=== PATIENT | female | born 1995 | race Caucasian/White ===

== ENCOUNTER 2017-11-21 17:46 | Emergency (ER) | payer OTHER ==
[~2017-11-21] VITALS: Ht 160.1 cm; Wt 129.3 kg
[~2017-11-21 17:46] MED LIST: AMOX/CLAV POT 81 TAB PO; PERCOCET 325 MG1 TA2 PO
[2017-11-21] MEDS ORDERED: IBUPROFEN800 M1 PO (17:51)
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
--- NOTE | 2017-11-21 19:31 | ULTRASOUND REPORT ---
EXAMINATION: US TRIPLEX LOWER EXTREMITY, LEFT CLINICAL INFORMATION: Left lower extremity pain. COMPARISON: None TECHNIQUE: Color-flow triplex imaging with spectral analysis and compression Doppler were performed on the lower extremity. FINDINGS: Respiratory variation, normal compression and augmented flow are noted throughout the lower extremity. The visualized common femoral vein, superficial femoral vein, profunda femoral vein, popliteal vein and midcalf peroneal and posterior tibial venous segments show no evidence of deep venous thrombosis. There is no Gray's cyst. IMPRESSION: No evidence of deep venous thrombosis involving the lower extremity.
[2017-11-21 19:49] VITALS: BP 135/68
== END 2017-11-21 19:57 ==
LOC: ERH 17:46
DX: M79.662 Pain in left lower leg (principal)